=== PATIENT | female | born 1975 | race Hispanic/Latino ===

== ENCOUNTER 2017-03-21 21:05 | Emergency (ER) | payer SELFPAY ==
[2017-03-21 21:24] LABS: Bacteria/HPF 3+ HPF (None Seen); Bilirubin Negative (Negative); Blood, Urine Trace (Negative); Clarity Hazy (Clear); Glucose, Urine (Dipstick) 100 mg/dL (Negative); Leukocyte Moderate (Negative); Nitrite Positive (Negative); Protein, Urine (Dipstick) 100 mg/dL (Neg-Trace); Squamous Epithelial 0-3 HPF (0-3); pH, Urine 7.5 (5.0-9.0)
[2017-03-21 21:25] LABS: RBC/HPF 0-3 HPF (0-3)
[2017-03-21 21:26] LABS: Pregnancy Test - Urine (BHCG) Negative (NEGATIVE); Pregu Control Background? CLEAR/WHITE (CLR/WHITE); Pregu Control Bar Appear? YES (CONTROL BAR)
== END 2017-03-21 23:05 | disposition home or self-care (01) ==
LOC: NAV ERS 21:05
DX: N39.0 Urinary tract infection, site not specified (principal); G51.0 Bell's palsy; J45.909 Unspecified asthma, uncomplicated
CPT/HCPCS: 81003; 81015; 81025; 87086; 99283